=== PATIENT | female | born 1990 | race Caucasian/White ===

== ENCOUNTER → 2019-11-26 | Outpatient (CLI) | payer OTHER ==
[2019-11-26 15:26] LABS: ALANINE AMINOTRANSFERASE 21 U/L (12-78); ALBUMIN 3.8 g/dL (3.4-5.0); ANION GAP 6 mmol/L (5-15); CALCIUM 8.7 mg/dL (8.5-10.1); CHLORIDE 111 mmol/L (98-107); CREATININE 1.28 mg/dL (0.55-1.02)
[2019-11-26 15:28] LABS: ALKALINE PHOSPHATASE 33 U/L (45-117); BILIRUBIN,TOTAL 0.4 mg/dL (0.2-1.0); TOTAL PROTEIN 7.7 g/dL (6.4-8.2)
== END | disposition home or self-care (01) ==
LOC: LAB 15:01
PROVIDERS: ATTEND Obstetrics & Gynecology
DX: Z13.9 Encounter for screening, unspecified (principal)
CPT/HCPCS: 36415; 80053